=== PATIENT | female | born 1975 | race Two or more races ===

== ENCOUNTER 2017-11-30 06:34 | Emergency (ER) | payer SELFPAY ==
[~2017-11-30] VITALS: Ht 162.6 cm; Wt 99.8 kg
[2017-11-30 06:50] VITALS: BP 150/89
[2017-11-30] MEDS ORDERED: LIDOCAINE VISCOUS 2% 15ML UD PO ONE (07:30)
[2017-11-30] MEDS ORDERED: DONNATAL 5ml ORAL Elix (BELLADONNA ALK-PHENOBARB) PO ONE (07:30)
[2017-11-30] MEDS ORDERED: ALUM & MAG HYDROX-SIMETH LIQ(MAALOX) 30 ML PO ONE (07:30)
== END 2017-11-30 07:25 | disposition left against medical advice (07) ==
LOC: ER 06:40
DX: K29.70 Gastritis, unspecified, without bleeding (principal); E11.9 Type 2 diabetes mellitus without complications; I10 Essential (primary) hypertension; N83.209 Unspecified ovarian cyst, unspecified side; Z53.29 Procedure and treatment not carried out because of patient's decision for other reasons